=== PATIENT | female | born 1995 | race American Indian/Alaskan Native ===

== ENCOUNTER 2018-01-10 18:46 | Emergency (ER) | payer OTHER ==
[2018-01-10 20:02] VITALS: BP 122/87
[2018-01-10 20:30] LABS: Hematocrit 33.8 % (30.3-42.9); Hemoglobin 11.4 gm/dl (10.1-14.3); Mean Corpuscular HGB Conc 34 % (30-34); Mean Corpuscular Hemoglobin 32 pg (28-32); Mean Corpuscular Volume 94 fl (79-97); Platelet Count 438 K/mm3 (140-440); Red Cell Distribution Width 15.6 % (13.2-15.2)
[2018-01-10 20:51] LABS: BUN/Creatinine Ratio 18; Blood Urea Nitrogen 11 mg/dL (7-17); Calcium 9.1 mg/dL (8.4-10.2); Hemolysis Index 3
[2018-01-10 21:04] LABS: Basophils % (Manual) 0 % (0.0-1.8); Total Cells Counted 100
[2018-01-10 21:05] LABS: Anisocytosis 2+; Large Platelets Few; Macrocytosis Rare; Platelet Estimate Consistent w Auto
[2018-01-10 22:37] LABS: Bacteria,Urine 1+ /HPF (Negative); Bilirubin,Urine NEG (Negative); Blood,Urine NEG (Negative); Calcium Oxalate Crystals,Urine 2+; Color,Urine Amber (Yellow); Mucus,Urine 3+ /HPF
[2018-01-10 22:44] LABS: Amphetamine Screen,Urine PRESUMPTIVE NEGATIVE; Benzodiazepines Screen,Urine PRESUMPTIVE NEGATIVE; Cocaine Screen,Urine PRESUMPTIVE NEGATIVE; Methadone Screen,Urine PRESUMPTIVE NEGATIVE; Opiate Screen,Urine PRESUMPTIVE NEGATIVE
[2018-01-10 22:47] LABS: Cannabinoid Screen,Urine PRESUMPTIVE POSITIVE
== END 2018-01-11 00:52 | disposition left against medical advice (07) ==
LOC: ED 18:46
DX: F10.129 Alcohol abuse with intoxication, unspecified (principal); Y90.9 Presence of alcohol in blood, level not specified; Z53.21 Procedure and treatment not carried out due to patient leaving prior to being seen by health care provider; Z79.899 Other long term (current) drug therapy
CPT/HCPCS: 36415; 80048; 80307; 81001; 84703; 85007; 85025; G0480; 80320

== ENCOUNTER 2018-01-11 18:15 | Emergency (ER) | payer OTHER ==
[2018-01-11 18:58] VITALS: BP 155/95
[2018-01-11 19:49] LABS: Hematocrit 31.5 % (30.3-42.9); Hemoglobin 10.9 gm/dl (10.1-14.3); Mean Corpuscular HGB Conc 35 % (30-34); Mean Corpuscular Hemoglobin 32 pg (28-32); Mean Corpuscular Volume 94 fl (79-97); Platelet Count 400 K/mm3 (140-440); Red Blood Count 3.35 M/mm3 (3.65-5.03); Red Cell Distribution Width 15.4 % (13.2-15.2)
[2018-01-11 20:03] LABS: BUN/Creatinine Ratio 20; Blood Urea Nitrogen 10 mg/dL (7-17); Calcium 8.4 mg/dL (8.4-10.2); Hemolysis Index 5
[2018-01-11 20:31] LABS: Basophils % (Manual) 0 % (0.0-1.8); Myelocytes # (Manual) 0.5 K/mm3; RBC Morphology Normal; Total Cells Counted 100
[2018-01-11 23:41] LABS: Bacteria,Urine 1+ /HPF (Negative); Bilirubin,Urine NEG (Negative); Blood,Urine NEG (Negative); Color,Urine Yellow (Yellow); Mucus,Urine 1+ /HPF
[2018-01-11 23:48] LABS: Amphetamine Screen,Urine PRESUMPTIVE NEGATIVE; Benzodiazepines Screen,Urine PRESUMPTIVE NEGATIVE; Cocaine Screen,Urine PRESUMPTIVE NEGATIVE; Methadone Screen,Urine PRESUMPTIVE NEGATIVE
[2018-01-12 00:47] LABS: Cannabinoid Screen,Urine PRESUMPTIVE POSITIVE; Opiate Screen,Urine PRESUMPTIVE POSITIVE
== END 2018-01-12 07:32 | disposition left against medical advice (07) ==
LOC: ED 18:15
DX: Z00.8 Encounter for other general examination (principal); Z79.899 Other long term (current) drug therapy; Z53.21 Procedure and treatment not carried out due to patient leaving prior to being seen by health care provider
CPT/HCPCS: 36415; 80048; 80307; 81001; 84703; 85007; 85025; G0480; 80320

== ENCOUNTER 2018-01-12 18:04 | Emergency (ER) | payer OTHER ==
[2018-01-12 18:21] VITALS: BP 122/73
--- NOTE | 2018-01-12 19:59 | Emergency Department Report ---
ED Psych HPI - General Chief Complaint: Alcohol Stated Complaint: MEDICAL CLEARENCE Time Seen by Provider: 01/12/18 19:06 Source: patient Mode of arrival: Ambulatory Limitations: No Limitations - History of Present Illness Initial Comments: Need a medical release, so she can go to a [facility]. She has been taking pills for five years, was taking them for many years, has done IV heroin , also has used methamphetamine, marijuana, no cocaine. Has been to a detox center in [place] two years ago. She has tried Suboxone in the past. She is not working, has family here. Seems motivated in earnest to get help. She is 6 months . Quality: constant Improves With: none Worsens With: none Context: recent drug abuse Associated Symptoms: denies other symptoms Treatments Prior to Arrival: none - Related Data Allergies Allergy/AdvReac Type Severity Reaction Status Date / Time No Known Allergies Allergy Verified 01/12/18 18:11 ED Review of Systems ROS: Stated complaint: MEDICAL CLEARENCE Other details as noted in HPI Comment: All other systems reviewed and negative Constitutional: see HPI Eyes: as per HPI ENT: as per HPI Respiratory: see HPI Cardiovascular: as per HPI Endocrine: see HPI Gastrointestinal: as per HPI Genitourinary: as per HPI Musculoskeletal: as per HPI Skin: as per HPI Neurological: as per HPI Psychiatric: as per HPI Hematological/Lymphatic: as per HPI ED Past Medical Hx - Past Medical History Hx Asthma: Yes - Surgical History Additional Surgical History: tonsillectomy - Social History Smoking Status: Current Every Day Smoker ED Physical Exam - General Limitations: No Limitations General appearance: alert, in no apparent distress - Head Head exam: Present: atraumatic - Eye Eye exam: Present: normal appearance, PERRL, EOMI - ENT ENT exam: Present: normal exam - Neck Neck exam: Present: normal inspection - Respiratory Respiratory exam: Present: normal lung sounds bilaterally. Absent: respiratory distress, wheezes, rales, rhonchi - Cardiovascular Cardiovascular Exam: Present: regular rate, normal rhythm, normal heart sounds - GI/Abdominal GI/Abdominal exam: Present: soft - Extremities Exam Extremities exam: Present: normal inspection - Back Exam Back exam: Present: normal inspection - Neurological Exam Neurological exam: Present: alert, oriented X3, CN II-XII intact - Psychiatric Psychiatric exam: Present: normal affect, normal mood. Absent: depressed, anxious - Skin Skin exam: Present: warm, dry, intact, normal color ED Course Vital Signs 01/12/18 01/12/18 01/12/18 18:11 18:20 18:22 Temperature 98.3 F 98.2 F Pulse Rate 90 61 Respiratory 16 18 18 Rate Blood Pressure 121/68 Blood Pressure 122/73 [Right] O2 Sat by Pulse 100 97 97 Oximetry - Reevaluation(s) Reevaluation #1: 01/12/18 22:31 She has been here over the last couple of days, has gotten blood work, and then went home due to the apparent wait time and getting placed at a facility. I explained to her that I will need to go ahead and repeat the blood work again and that she should remain here in the ER until we can find a place for her to go to. She discusses understanding. I reviewed her labs and her white blood cell count was elevated in the past. However she does not have any indication of active infection at this time. She denies any kind of dysuria coughing abdominal pain nausea vomiting or diarrhea. It is known that in women who are the white blood cell count can sometimes be elevated due to the physiological effect of the . I think it is important that this patient receive adequate care for her opioid use disorder. I also discussed this at length with the patient as well. She will likely need maintenance therapy due to her over 5 year history of opioid use disorder and IV heroin use. While detoxing is a possibility, maintenance therapy with Subutex since she is or with Suboxone post- is likely to be beneficial for her. I placed a consult for mental health to evaluate. ED Medical Decision Making - Lab Data Result diagrams: 01/12/18 21:02 01/12/18 21:02 Critical care attestation.: If time is entered above; I have spent that time in minutes in the direct care of this critically ill patient, excluding procedure time. ED Disposition Clinical Impression: Opioid use disorder, severe, dependence Disposition: [id number] PSY HOSP/PSY UNIT Is pt being admited?: No Does the pt Need Aspirin: No Condition: Stable Instructions: Polysubstance Abuse (ED) Referrals: PRIMARY CARE, [Primary Care Provider] - 3-5 Days
[2018-01-12 21:17] LABS: Hemoglobin 10.6 gm/dl (10.1-14.3); Mean Corpuscular HGB Conc 35 % (30-34); Mean Corpuscular Hemoglobin 33 pg (28-32); Mean Corpuscular Volume 93 fl (79-97); Platelet Count 384 K/mm3 (140-440); Red Blood Count 3.23 M/mm3 (3.65-5.03); Red Cell Distribution Width 15.3 % (13.2-15.2)
[2018-01-12 21:32] LABS: Alanine Aminotransferase 10 units/L (7-56); Albumin 3.4 g/dL (3.9-5); BUN/Creatinine Ratio 14; Blood Urea Nitrogen 7 mg/dL (7-17); Calcium 7.9 mg/dL (8.4-10.2); Hemolysis Index 3
[2018-01-12 22:12] LABS: Basophils % (Manual) 0 % (0.0-1.8); Myelocytes # (Manual) 0.3 K/mm3; RBC Morphology Normal; Total Cells Counted 100
[2018-01-12 23:33] LABS: Bilirubin,Urine NEG (Negative); Blood,Urine NEG (Negative); Color,Urine Yellow (Yellow); Mucus,Urine 1+ /HPF
[2018-01-12 23:38] LABS: Amphetamine Screen,Urine PRESUMPTIVE NEGATIVE; Benzodiazepines Screen,Urine PRESUMPTIVE NEGATIVE; Cocaine Screen,Urine PRESUMPTIVE NEGATIVE; Methadone Screen,Urine PRESUMPTIVE NEGATIVE
[2018-01-12 23:51] LABS: Cannabinoid Screen,Urine PRESUMPTIVE POSITIVE; Opiate Screen,Urine PRESUMPTIVE POSITIVE
== END 2018-01-13 03:04 ==
LOC: ED 18:04
DX: O99.322 Drug use complicating pregnancy, second trimester (principal); F11.90 Opioid use, unspecified, uncomplicated; F17.200 Nicotine dependence, unspecified, uncomplicated; Z3A.24 24 weeks gestation of pregnancy
CPT/HCPCS: 36415; 80053; 80307; 81001; 83735; 84702; 85007; 85025; 99284; G0480; 80320; 99285